=== PATIENT | male | born 1995 | race Caucasian/White ===

== ENCOUNTER 2016-09-12 01:33 | Emergency (ER) | payer BC ==
[2016-09-12 01:43] VITALS: BP 137/91
[2016-09-12] MEDS ORDERED: HYDROcodone/ACETAMINOPHEN 1 EACH TABLET PO ONE (02:07)
[2016-09-12] MEDS ORDERED: HYDROCODONE PO PRN (02:07)
[2016-09-12] MEDS ORDERED: ACETAMINOPHEN PO PRN (02:07)
[2016-09-12] MEDS ORDERED: [UNRECOGNIZED DRUG - OTHER] PO PRN (02:07)
[2016-09-12] MEDS ORDERED: HYDROcodone/ACETAMINOPHEN 1 EACH TABLET ONE (02:10)
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
== END 2016-09-12 02:50 | disposition home or self-care (01) ==
LOC: ER 01:33
DX: S81.802A Unspecified open wound, left lower leg, initial encounter (principal); F17.210 Nicotine dependence, cigarettes, uncomplicated; V89.2XXA Person injured in unspecified motor-vehicle accident, traffic, initial encounter